=== PATIENT | female | born 1935 | race Asian ===

== ENCOUNTER 2022-11-29 02:58 | Inpatient (IN) | payer MEDICARE ==
[~2022-11-29] VITALS: Ht 154.9 cm; Wt 36.3 kg
[2022-11-29] VITALS (17 sets, daily range): BP systolic 88–161; BP diastolic 50–98; TEMP 96.6–98.5; O2SAT 94–98
[2022-11-29] MEDS ORDERED: IV NS 0.9% 1,000 ML BAG IV ONE (03:30)
[2022-11-29 03:32] LABS: SITE, VBG Other; VBG BASE EXCESS -18.4 mmol/L (-3-3); VBG COHb 0.3 %; VBG MetHb 0.4 %; VBG O2Hb 77.4 %; VBG OXYGEN SATURATION 77.9 %; VBG PCO2 19.1 mmHg (40-52); VBG PH 7.198 (7.31-7.41); VBG PO2 43.2 mmHg (30-50); VBG TOTAL HEMOGLOBIN 15.6 G/dL (12.0-16.0); VENT MODE, VBG ROOM AIR
[2022-11-29 03:57] LABS: LACTIC ACID 1.5 mmol/L (0.4-2.0)
[2022-11-29 03:58] LABS: ALANINE AMINOTRANSFERASE 11 U/L (12-78); ALBUMIN 2.5 g/dL (3.4-5.0); ALKALINE PHOSPHATASE 138 U/L (46-116); ASPARTATE AMINOTRANSFERASE 7 U/L (15-37); BILIRUBIN,DIRECT 0.2 mg/dL (0.0-0.2); BILIRUBIN,TOTAL 0.8 mg/dL (0.2-1.0); CALCIUM, SERUM 10.2 mg/dL (8.5-10.1); CHLORIDE 95 mmol/L (98-107); CREATININE 1.3 mg/dL (0.6-1.3); POTASSIUM 3.1 mmol/L (3.5-5.1); SODIUM SERUM 137 mmol/L (136-145); TOTAL PROTEIN, SERUM 8.3 g/dL (6.4-8.2); UREA NITROGEN, BLOOD 35 mg/dL (7-18)
[2022-11-29 03:59] LABS: BASOPHILS % (AUTO) 0.1 % (0.0-2.0); HEMATOCRIT 45 % (33-45); HEMOGLOBIN 14.3 g/dL (11.5-14.8); LYMPHOCYTES # (AUTO) 0.5 K/uL (0.8-4.8); LYMPHOCYTES % (AUTO) 2.6 % (20.0-44.0); MEAN CORPUSCULAR HEMOGLOBIN 30 PG (26.0-33.0); MEAN CORPUSCULAR HGB CONC 32 g/dl (31.0-36.0); MEAN CORPUSCULAR VOLUME 93 fL (82-100); MONOCYTES # (AUTO) 1.3 K/uL (0.1-1.30); MONOCYTES % (AUTO) 6.7 % (2.0-12.0); NEUTROPHILS # (AUTO) 18.1 K/uL (1.8-8.9); NEUTROPHILS % (AUTO) 90.6 % (43.0-81.0); PLATELET COUNT (AUTO) 486 K/uL (150-450); RED BLOOD CELL COUNT(AUTO) 4.82 MIL/uL (4.0-5.2); RED CELL DISTRIBUTION WIDTH 14.2 % (11.5-15.0)
[2022-11-29 04:00] LABS: CARBON DIOXIDE 8 mmol/L (21-32); GLUCOSE 629 mg/dL (74-106)
[2022-11-29] MEDS ORDERED: POTASSIUM CL. PREMIX PERIPHER. 50 ML ONE ×3 (04:16→06:56)
[2022-11-29] MEDS ORDERED: VANCOMYCIN 1 GM /D5W 250 ML PB IV ONE (04:16)
[2022-11-29] MEDS ORDERED: PIPERACI/TAZO 3.375GM/D5W 50ML PB IV ONE (04:16)
[2022-11-29 04:25] LABS: MAGNESIUM 2.4 mg/dL (1.8-2.4); PHOSPHORUS 3.6 mg/dL (2.5-4.9)
[2022-11-29] MEDS ORDERED: IV LR 1000 ML 1,000 ML IV ONE (04:30)
[2022-11-29] MEDS ORDERED: PIPERACILLIN /TAZOBACTAM 3.375 G in IV D5W 50 ML IV ONE (04:30)
[2022-11-29] MEDS ORDERED: VANCOMYCIN 1 GM in IV D5W 250 ML IV ONE (04:30)
[2022-11-29] MEDS: POTASSIUM CL. PREMIX PERIPHER. 50 ML IV SCH ×10 (05:00→23:57)
[2022-11-29 05:32] LABS: APPEARANCE,URINE CLOUDY (CLEAR); BILIRUBIN,URINE NEGATIVE (NEGATIVE); BLOOD, URINE 1+ Ery/uL (NEGATIVE); COLOR,URINE YELLOW (YELLOW); KETONES,URINE 3+ mg/dL (NEGATIVE); LEUKOCYTE ESTERASE ,URINE 1+ (NEGATIVE); NITRITE, URINE NEGATIVE (NEGATIVE); PH,URINE 5.5 (5.0-8.0); PROTEIN,URINE 1+ mg/dl (NEGATIVE); UGLUCOSE 2+ mg/dL (NEGATIVE); UROBILINOGEN,URINE 0.2 EU/dL (0.2)
[2022-11-29 06:26] LABS: ADD URINE CULTURE YES; BACTERIA,URINE 3+ /HPF (None Seen); MUCUS,URINE Moderate /LPF (None Seen); WBC,URINE TOO NUMEROUS TO COUN /HPF (0-3)
[2022-11-29] MEDS ORDERED: Z GUARD REMEDY 4 OZ OINT TP PRN (06:30)
[2022-11-29] MEDS ORDERED: MORPHINE SULFATE INJ 2 MG/ML DISP.SYRIN IV PRN (06:30)
[2022-11-29] MEDS ORDERED: IV NS 0.9% 1,000 ML IV PRN (06:30)
[2022-11-29] MEDS ORDERED: CEFTRIAXONE 1 G in IV D5W 50 ML IV SCH (06:30)
[2022-11-29] MEDS ORDERED: HYDROCODONE/APAP 5/325MG TABLET PO PRN (06:30)
[2022-11-29] MEDS ORDERED: MAGNESIUM HYDROXIDE 30 ML UDC PO PRN (06:30)
[2022-11-29] MEDS ORDERED: MAG HYDROX/AL HYDROX/SIMETH 30 ML UDC PO PRN (06:30)
[2022-11-29] MEDS ORDERED: ACETAMINOPHEN 325 MG TABLET PO PRN (06:30)
[2022-11-29] MEDS ORDERED: INSULIN REGULAR, HUMAN 100 UNIT in IV NS 0.9% 99 ML IV PRN ×2 (06:30)
[2022-11-29] MEDS ORDERED: ONDANSETRON HCL/PF 4 MG/2 ML VIAL IVP PRN (06:30)
[2022-11-29 07:08] LABS: CALCIUM, SERUM 8.8 mg/dL (8.5-10.1); CREATININE 1.1 mg/dL (0.6-1.3); POTASSIUM 3.9 mmol/L (3.5-5.1)
[2022-11-29] MEDS ORDERED: CLON0.1T PO (07:42)
[2022-11-29] MEDS ORDERED: METF-440 PO (07:42)
[2022-11-29] MEDS ORDERED: AMLO-213 PO (07:42)
[2022-11-29 08:20] LABS: CALCIUM, SERUM 8.3 mg/dL (8.5-10.1); CREATININE 1.1 mg/dL (0.6-1.3)
[2022-11-29] MEDS: PANTOPRAZOLE 40 MG TABLET.DR PO SCH (09:04)
[2022-11-29] MEDS: ENOXAPARIN SODIUM 30 MG/0.3 ML DISP.SYRIN SQ SCH (09:05)
[2022-11-29 12:09] LABS: CALCIUM, SERUM 8.8 mg/dL (8.5-10.1); POTASSIUM 3.6 mmol/L (3.5-5.1)
[2022-11-29] MEDS ORDERED: IV D5/ 0.9% NACL 1,000 ML IV PRN (13:30)
[2022-11-29] MEDS: ZOSYN IVPB 2.25 G in IV D5W 50ml IV SCH ×2 (14:27→20:29)
[2022-11-29 17:14] LABS: CALCIUM, SERUM 8.7 mg/dL (8.5-10.1); CREATININE 0.7 mg/dL (0.6-1.3)
[2022-11-29 17:36] LABS: POTASSIUM 2.6 mmol/L (3.5-5.1)
[2022-11-29] MEDS ORDERED: Potassium Chloride 40 MEQ in IV D5/ 0.9% NACL 1,000 ML IV SCH (18:00)
[2022-11-29] MEDS: Potassium Chloride 40 MEQ in IV D5/ 0.9% NACL 1,000 ML IV SCH (19:51)
[2022-11-29 20:25] LABS: CALCIUM, SERUM 8.5 mg/dL (8.5-10.1); CREATININE 0.7 mg/dL (0.6-1.3)
[2022-11-29 20:27] LABS: POTASSIUM 2.8 mmol/L (3.5-5.1)
[2022-11-29] MEDS ORDERED: AZITHROMYCIN 500 MG VIAL ONE (20:59)
[2022-11-29] MEDS: AZITHROMYCIN 500 MG in IV D5W 250 ML IV SCH (21:26)
[2022-11-30] VITALS (18 sets, daily range): BP systolic 110–160; BP diastolic 54–93; TEMP 97.6–98.9; O2SAT 95–99
[2022-11-30 00:54] LABS: CALCIUM, SERUM 8.3 mg/dL (8.5-10.1); CREATININE 0.8 mg/dL (0.6-1.3); POTASSIUM 3.7 mmol/L (3.5-5.1)
[2022-11-30] MEDS ORDERED: BLOOD SUGAR DIAGNOSTIC 1 EACH STRIP IN SCH (01:00)
[2022-11-30] MEDS: ZOSYN IVPB 2.25 G in IV D5W 50ml IV SCH ×4 (01:26→20:44)
[2022-11-30] MEDS ORDERED: DEXTROSE 50%-WATER 50 ML DISP.SYRIN IV PRN (02:00)
[2022-11-30] MEDS: VANCOMYCIN HCL 0.75 GM in IV D5W 250 ML IV SCH (04:36)
[2022-11-30 04:51] LABS: BASOPHILS % (AUTO) 0.2 % (0.0-2.0); HEMATOCRIT 38 % (33-45); HEMOGLOBIN 12.3 g/dL (11.5-14.8); LYMPHOCYTES % (AUTO) 5.1 % (20.0-44.0); MEAN CORPUSCULAR HEMOGLOBIN 29 PG (26.0-33.0); MEAN CORPUSCULAR HGB CONC 32 g/dl (31.0-36.0); MEAN CORPUSCULAR VOLUME 90 fL (82-100); MONOCYTES # (AUTO) 1.4 K/uL (0.1-1.30); NEUTROPHILS # (AUTO) 17.3 K/uL (1.8-8.9); NEUTROPHILS % (AUTO) 87.7 % (43.0-81.0); PLATELET COUNT (AUTO) 301 K/uL (150-450); RED BLOOD CELL COUNT(AUTO) 4.23 MIL/uL (4.0-5.2); RED CELL DISTRIBUTION WIDTH 13.7 % (11.5-15.0); WHITE BLOOD COUNT (AUTO) 19.8 K/uL (4.3-11.0)
[2022-11-30 05:12] LABS: ALBUMIN 1.8 g/dL (3.4-5.0); BILIRUBIN,TOTAL 0.6 mg/dL (0.2-1.0); CALCIUM, SERUM 8.8 mg/dL (8.5-10.1); CREATININE 0.7 mg/dL (0.6-1.3); MAGNESIUM 1.7 mg/dL (1.8-2.4); PHOSPHORUS 1.3 mg/dL (2.5-4.9); POTASSIUM 3.6 mmol/L (3.5-5.1); TOTAL PROTEIN, SERUM 6.6 g/dL (6.4-8.2)
[2022-11-30 05:18] LABS: THYROID STIMULATING HORMONE 0.392 uIU/mL (0.358-3.74)
[2022-11-30 06:04] LABS: BAND % (MANUAL) 16 % (0.0-5.0); LYMPHOCYTES % (MANUAL) 7 % (16-48); MONOCYTES % (MANUAL) 3 % (0-11.0); NEUTROPHILS % (MANUAL) 74 (42-76); PLATELET ESTIMATE ADEQUATE
[2022-11-30] MEDS: ENOXAPARIN SODIUM 30 MG/0.3 ML DISP.SYRIN SQ SCH (06:06)
[2022-11-30] MEDS: BLOOD SUGAR DIAGNOSTIC 1 EACH STRIP IN SCH ×4 (07:04→22:50)
[2022-11-30] MEDS: INSULIN REGULAR, HUMAN 100 UNIT/ML 3 ML VIAL SQ PRN ×2 (07:07→17:13)
[2022-11-30] MEDS: PANTOPRAZOLE 40 MG TABLET.DR PO SCH (07:08)
[2022-11-30] MEDS: Potassium Chloride 40 MEQ in IV D5/ 0.9% NACL 1,000 ML IV SCH ×2 (09:16→23:34)
[2022-11-30] MEDS: Magnesium 1GM/D5W 100ML PREMIX 100 ML IV SCH ×2 (09:43→10:48)
[2022-11-30] MEDS ORDERED: K PHOS NEUTRAL 250 MG TABLET PO ONE (16:00)
[2022-11-30] MEDS: AZITHROMYCIN 500 MG in IV D5W 250 ML IV SCH (20:44)
[2022-12-01] MEDS: INSULIN REGULAR, HUMAN 100 UNIT/ML 3 ML VIAL SQ PRN ×5 (00:30→21:51)
[2022-12-01] MEDS: ZOSYN IVPB 2.25 G in IV D5W 50ml IV SCH ×4 (02:11→20:16)
[2022-12-01 04:00] VITALS: BP 150/61; TEMP 97.7; O2SAT 97
[2022-12-01] MEDS: VANCOMYCIN HCL 0.75 GM in IV D5W 250 ML IV SCH (04:06)
[2022-12-01 06:27] LABS: EOSINOPHILS # (AUTO) 0.1 K/uL (0.0-0.7); EOSINOPHILS % (AUTO) 0.7 % (0.0-6.0); HEMATOCRIT 40 % (33-45); HEMOGLOBIN 13.1 g/dL (11.5-14.8); LYMPHOCYTES # (AUTO) 1.6 K/uL (0.8-4.8); LYMPHOCYTES % (AUTO) 11.3 % (20.0-44.0); MEAN CORPUSCULAR HEMOGLOBIN 30 PG (26.0-33.0); MEAN CORPUSCULAR HGB CONC 33 g/dl (31.0-36.0); MEAN CORPUSCULAR VOLUME 90 fL (82-100); MONOCYTES # (AUTO) 1.2 K/uL (0.1-1.30); MONOCYTES % (AUTO) 8.4 % (2.0-12.0); NEUTROPHILS # (AUTO) 11.4 K/uL (1.8-8.9); NEUTROPHILS % (AUTO) 79.6 % (43.0-81.0); PLATELET COUNT (AUTO) 268 K/uL (150-450); RED BLOOD CELL COUNT(AUTO) 4.42 MIL/uL (4.0-5.2); RED CELL DISTRIBUTION WIDTH 13.9 % (11.5-15.0); WHITE BLOOD COUNT (AUTO) 14.3 K/uL (4.3-11.0)
[2022-12-01] MEDS: BLOOD SUGAR DIAGNOSTIC 1 EACH STRIP IN SCH ×4 (06:53→21:55)
[2022-12-01] MEDS: ENOXAPARIN SODIUM 30 MG/0.3 ML DISP.SYRIN SQ SCH (06:53)
[2022-12-01 07:00] LABS: ALBUMIN 1.6 g/dL (3.4-5.0); BILIRUBIN,TOTAL 0.5 mg/dL (0.2-1.0); CALCIUM, SERUM 8.1 mg/dL (8.5-10.1); CREATININE 0.6 mg/dL (0.6-1.3); MAGNESIUM 2.1 mg/dL (1.8-2.4); PHOSPHORUS 1.8 mg/dL (2.5-4.9); POTASSIUM 3.4 mmol/L (3.5-5.1); TOTAL PROTEIN, SERUM 6.2 g/dL (6.4-8.2)
[2022-12-01] MEDS: PANTOPRAZOLE 40 MG TABLET.DR PO SCH (07:16)
[2022-12-01 10:07] VITALS: BP 145/64; TEMP 98.4; O2SAT 98
[2022-12-01] MEDS: Potassium Chloride 40 MEQ in IV D5/ 0.9% NACL 1,000 ML IV SCH (11:34)
[2022-12-01] MEDS ORDERED: POTASSIUM CHLORIDE 20 MEQ POWDER PACKET PO ONE (12:00)
[2022-12-01] MEDS ORDERED: CLONIDINE HCL 0.1 MG TABLET PO PRN (13:00)
[2022-12-01] MEDS: METFORMIN 500 MG TABLET PO SCH (17:11)
[2022-12-01 20:00] VITALS: BP 153/63; TEMP 98.8; O2SAT 99
[2022-12-01] MEDS: AZITHROMYCIN 500 MG in IV D5W 250 ML IV SCH (20:51)
[2022-12-01] MEDS: INSULIN GLARGINE, 100 UNIT/ML CARTRIDGE SQ SCH (22:10)
[2022-12-02] MEDS: Potassium Chloride 40 MEQ in IV D5/ 0.9% NACL 1,000 ML IV SCH ×2 (01:24→14:43)
[2022-12-02] MEDS: ZOSYN IVPB 2.25 G in IV D5W 50ml IV SCH ×4 (02:08→19:58)
[2022-12-02 04:00] VITALS: BP 149/75; TEMP 98.6; O2SAT 99
[2022-12-02] MEDS: VANCOMYCIN HCL 0.75 GM in IV D5W 250 ML IV SCH (04:22)
[2022-12-02] MEDS: ENOXAPARIN SODIUM 30 MG/0.3 ML DISP.SYRIN SQ SCH (06:35)
[2022-12-02] MEDS: BLOOD SUGAR DIAGNOSTIC 1 EACH STRIP IN SCH ×4 (06:58→21:10)
[2022-12-02] MEDS: INSULIN REGULAR, HUMAN 100 UNIT/ML 3 ML VIAL SQ PRN ×3 (07:01→21:15)
[2022-12-02 07:09] LABS: CALCIUM, SERUM 7.6 mg/dL (8.5-10.1); CARBON DIOXIDE 25 mmol/L (21-32); CHLORIDE 101 mmol/L (98-107); CREATININE 0.5 mg/dL (0.6-1.3); GLUCOSE 245 mg/dL (74-106); MAGNESIUM 1.7 mg/dL (1.8-2.4); PHOSPHORUS 1.7 mg/dL (2.5-4.9); POTASSIUM 3.4 mmol/L (3.5-5.1); SODIUM SERUM 135 mmol/L (136-145); UREA NITROGEN, BLOOD 2 mg/dL (7-18)
[2022-12-02 07:45] LABS: BASOPHILS % (AUTO) 0.1 % (0.0-2.0); EOSINOPHILS # (AUTO) 0.1 K/uL (0.0-0.7); EOSINOPHILS % (AUTO) 0.6 % (0.0-6.0); HEMATOCRIT 37 % (33-45); LYMPHOCYTES # (AUTO) 1.5 K/uL (0.8-4.8); MEAN CORPUSCULAR HEMOGLOBIN 29 PG (26.0-33.0); MEAN CORPUSCULAR HGB CONC 33 g/dl (31.0-36.0); MEAN CORPUSCULAR VOLUME 90 fL (82-100); MONOCYTES # (AUTO) 1.1 K/uL (0.1-1.30); MONOCYTES % (AUTO) 9.6 % (2.0-12.0); NEUTROPHILS # (AUTO) 8.6 K/uL (1.8-8.9); NEUTROPHILS % (AUTO) 76.7 % (43.0-81.0); PLATELET COUNT (AUTO) 279 K/uL (150-450); RED BLOOD CELL COUNT(AUTO) 4.11 MIL/uL (4.0-5.2); RED CELL DISTRIBUTION WIDTH 13.6 % (11.5-15.0); WHITE BLOOD COUNT (AUTO) 11.2 K/uL (4.3-11.0)
[2022-12-02 08:00] VITALS: BP 137/63; TEMP 99.1; O2SAT 97
[2022-12-02] MEDS: PANTOPRAZOLE 40 MG TABLET.DR PO SCH (08:21)
[2022-12-02] MEDS: AMLODIPINE BESYLATE 10 MG TABLET PO SCH (08:21)
[2022-12-02] MEDS: METFORMIN 500 MG TABLET PO SCH ×2 (08:21→17:36)
[2022-12-02] MEDS ORDERED: MAGNESIUM OXIDE 400 MG TABLET PO ONE (10:00)
[2022-12-02] MEDS: GLUCERNA SHAKE 237 ML CAN PO SCH ×2 (12:03→16:43)
[2022-12-02 16:00] VITALS: BP 152/56; TEMP 98.9; O2SAT 98
[2022-12-02] MEDS ORDERED: K PHOS NEUTRAL 250 MG TABLET PO ONE (16:00)
[2022-12-02] MEDS ORDERED: VANCOMYCIN 500 MG in IV D5W 100ml IV SCH (16:00)
[2022-12-02 20:00] VITALS: BP 153/58; TEMP 97.7; O2SAT 100
[2022-12-02] MEDS: AZITHROMYCIN 500 MG in IV D5W 250 ML IV SCH (20:36)
[2022-12-02] MEDS: INSULIN GLARGINE, 100 UNIT/ML CARTRIDGE SQ SCH (21:14)
[2022-12-03] MEDS: ZOSYN IVPB 2.25 G in IV D5W 50ml IV SCH ×3 (01:23→14:03)
[2022-12-03 01:30] VITALS: BP 147/58; TEMP 98.4; O2SAT 99
[2022-12-03] MEDS: Potassium Chloride 40 MEQ in IV D5/ 0.9% NACL 1,000 ML IV SCH (03:49)
[2022-12-03] MEDS: ENOXAPARIN SODIUM 30 MG/0.3 ML DISP.SYRIN SQ SCH (05:54)
[2022-12-03 06:28] LABS: BASOPHILS % (AUTO) 0.3 % (0.0-2.0); EOSINOPHILS # (AUTO) 0.1 K/uL (0.0-0.7); EOSINOPHILS % (AUTO) 1.5 % (0.0-6.0); HEMATOCRIT 31 % (33-45); HEMOGLOBIN 10.1 g/dL (11.5-14.8); LYMPHOCYTES # (AUTO) 1.7 K/uL (0.8-4.8); LYMPHOCYTES % (AUTO) 20.6 % (20.0-44.0); MEAN CORPUSCULAR HEMOGLOBIN 30 PG (26.0-33.0); MEAN CORPUSCULAR HGB CONC 33 g/dl (31.0-36.0); MEAN CORPUSCULAR VOLUME 90 fL (82-100); MONOCYTES # (AUTO) 1.2 K/uL (0.1-1.30); MONOCYTES % (AUTO) 14.6 % (2.0-12.0); NEUTROPHILS # (AUTO) 5.2 K/uL (1.8-8.9); PLATELET COUNT (AUTO) 277 K/uL (150-450); RED BLOOD CELL COUNT(AUTO) 3.39 MIL/uL (4.0-5.2); RED CELL DISTRIBUTION WIDTH 13.6 % (11.5-15.0); WHITE BLOOD COUNT (AUTO) 8.2 K/uL (4.3-11.0)
[2022-12-03 06:52] LABS: MAGNESIUM 1.7 mg/dL (1.8-2.4); PHOSPHORUS 2.5 mg/dL (2.5-4.9)
[2022-12-03] MEDS: PANTOPRAZOLE 40 MG TABLET.DR PO SCH (07:05)
[2022-12-03] MEDS: BLOOD SUGAR DIAGNOSTIC 1 EACH STRIP IN SCH ×4 (07:23→21:18)
[2022-12-03 08:00] VITALS: BP 139/64; TEMP 98.1; O2SAT 100
[2022-12-03] MEDS: GLUCERNA SHAKE 237 ML CAN PO SCH ×3 (08:28→17:20)
[2022-12-03] MEDS: METFORMIN 500 MG TABLET PO SCH ×2 (08:38→16:26)
[2022-12-03] MEDS: AMLODIPINE BESYLATE 10 MG TABLET PO SCH (08:38)
[2022-12-03] MEDS ORDERED: MAGNESIUM OXIDE 400 MG TABLET PO ONE (10:00)
[2022-12-03] MEDS ORDERED: POTASSIUM CHLORIDE 20 MEQ TAB.PRT.SR PO SCH (10:00)
[2022-12-03] MEDS: INSULIN REGULAR, HUMAN 100 UNIT/ML 3 ML VIAL SQ PRN ×2 (11:30→17:18)
[2022-12-03 16:00] VITALS: BP 129/58; TEMP 98.5; O2SAT 99
[2022-12-03 20:00] VITALS: BP 134/54; TEMP 99; O2SAT 100
[2022-12-03] MEDS: CEFTRIAXONE 1 G in IV D5W 50 ML IV SCH (21:00)
[2022-12-03] MEDS: INSULIN GLARGINE, 100 UNIT/ML CARTRIDGE SQ SCH (21:19)
[2022-12-04] MEDS: ENOXAPARIN SODIUM 30 MG/0.3 ML DISP.SYRIN SQ SCH (05:34)
[2022-12-04 06:50] LABS: BASOPHILS % (AUTO) 0.1 % (0.0-2.0); EOSINOPHILS # (AUTO) 0.3 K/uL (0.0-0.7); EOSINOPHILS % (AUTO) 3.7 % (0.0-6.0); HEMATOCRIT 35 % (33-45); HEMOGLOBIN 11.4 g/dL (11.5-14.8); LYMPHOCYTES # (AUTO) 2.2 K/uL (0.8-4.8); LYMPHOCYTES % (AUTO) 30.6 % (20.0-44.0); MEAN CORPUSCULAR HEMOGLOBIN 30 PG (26.0-33.0); MEAN CORPUSCULAR HGB CONC 33 g/dl (31.0-36.0); MEAN CORPUSCULAR VOLUME 90 fL (82-100); MONOCYTES # (AUTO) 1.1 K/uL (0.1-1.30); NEUTROPHILS # (AUTO) 3.7 K/uL (1.8-8.9); NEUTROPHILS % (AUTO) 50.6 % (43.0-81.0); PLATELET COUNT (AUTO) 407 K/uL (150-450); RED BLOOD CELL COUNT(AUTO) 3.84 MIL/uL (4.0-5.2); RED CELL DISTRIBUTION WIDTH 13.6 % (11.5-15.0); WHITE BLOOD COUNT (AUTO) 7.3 K/uL (4.3-11.0)
[2022-12-04 07:00] VITALS: BP 149/65; TEMP 97.9; O2SAT 96
[2022-12-04] MEDS: BLOOD SUGAR DIAGNOSTIC 1 EACH STRIP IN SCH ×2 (07:02→12:03)
[2022-12-04 07:14] LABS: CALCIUM, SERUM 7.9 mg/dL (8.5-10.1); CARBON DIOXIDE 29 mmol/L (21-32); CHLORIDE 104 mmol/L (98-107); CREATININE 0.5 mg/dL (0.6-1.3); GLUCOSE 93 mg/dL (74-106); MAGNESIUM 1.9 mg/dL (1.8-2.4); PHOSPHORUS 3.4 mg/dL (2.5-4.9); POTASSIUM 3.5 mmol/L (3.5-5.1); SODIUM SERUM 139 mmol/L (136-145); UREA NITROGEN, BLOOD 5 mg/dL (7-18)
[2022-12-04] MEDS: PANTOPRAZOLE 40 MG TABLET.DR PO SCH (09:12)
[2022-12-04] MEDS: GLUCERNA SHAKE 237 ML CAN PO SCH ×2 (09:12→12:04)
[2022-12-04] MEDS: AMLODIPINE BESYLATE 10 MG TABLET PO SCH (09:12)
[2022-12-04] MEDS: METFORMIN 500 MG TABLET PO SCH (09:12)
[2022-12-04] MEDS ORDERED: NUT.237L45 PO (10:09)
[2022-12-04] MEDS ORDERED: CEFT1VIA14 IJ (10:09)
[2022-12-04] MEDS ORDERED: INSU100V28 SQ (10:16)
[2022-12-04] MEDS ORDERED: INSU100V7 SQ (10:16)
[2022-12-04] MEDS: CEFTRIAXONE 1 G in IV D5W 50 ML IV SCH (15:42)
[2022-12-04 16:00] VITALS: BP 114/55; TEMP 97.8; O2SAT 97
== END 2022-12-04 17:26 | disposition home health service (06) | DRG 871 ==
LOC: ER 03:01 → ICU 07:50 → MEDSG1 11-30 16:03 → MED 12-03 01:20
PROVIDERS: ATTEND Nurse Practitioner Acute Care
DX: A40.9 Streptococcal sepsis, unspecified (principal); E11.10 Type 2 diabetes mellitus with ketoacidosis without coma; J69.0 Pneumonitis due to inhalation of food and vomit; N39.0 Urinary tract infection, site not specified; N17.9 Acute kidney failure, unspecified; R64 Cachexia; G93.40 Encephalopathy, unspecified; E86.1 Hypovolemia; F02.80 Dementia in other diseases classified elsewhere, unspecified severity, without behavioral disturbance, psychotic disturbance, mood disturbance, and anxiety; G30.9 Alzheimer's disease, unspecified; Z20.822 Contact with and (suspected) exposure to COVID-19; I10 Essential (primary) hypertension; E83.52 Hypercalcemia; E78.5 Hyperlipidemia, unspecified; Z79.84 Long term (current) use of oral hypoglycemic drugs; Z79.899 Other long term (current) drug therapy; B95.61 Methicillin susceptible Staphylococcus aureus infection as the cause of diseases classified elsewhere; Z74.09 Other reduced mobility
CPT/HCPCS: 36415; 71045-TC; 80048-TC; 80053-TC; 80076-TC; 80202-TC; 81001; 82803-TC; 82962-TC; 83605-TC; 83735-TC; 84100-TC; 84443-TC; 84484-TC; 85025-TC; 87040-TC; 87081-TC; 87086-TC; 97110-TC; 97112-TC; 97530-TC; 97535-TC; A4223; C9803; G0378; J0456; J0696; J1650; J1815; J2543; J3370; J3475; J3480; J7030; J7040; J7042; J7050; J7060; J7120

== ENCOUNTER 2023-02-06 17:15 | Inpatient (IN) | payer MEDICARE ==
[~2023-02-06] VITALS: Ht 154.9 cm; Wt 34.5 kg
[~2023-02-06 17:15] MED LIST: AMLO-213 PO; CEFT1VIA14 IJ; CLON0.1T PO; INSU100V28 SQ; INSU100V7 SQ; METF-440 PO; NUT.237L45 PO
[2023-02-06] MEDS ORDERED: IV NS 0.9% 500 ML BAG IV ONE ×2 (18:30→20:30)
[2023-02-06 18:39] LABS: BASOPHILS # (AUTO) 0.1 K/uL (0.0-0.2); BASOPHILS % (AUTO) 1.1 % (0.0-2.0); EOSINOPHILS # (AUTO) 0.1 K/uL (0.0-0.7); EOSINOPHILS % (AUTO) 1.1 % (0.0-6.0); HEMATOCRIT 38 % (33-45); HEMOGLOBIN 12.4 g/dL (11.5-14.8); LYMPHOCYTES # (AUTO) 2.1 K/uL (0.8-4.8); LYMPHOCYTES % (AUTO) 34.5 % (20.0-44.0); MEAN CORPUSCULAR HEMOGLOBIN 29 PG (26.0-33.0); MEAN CORPUSCULAR HGB CONC 33 g/dl (31.0-36.0); MEAN CORPUSCULAR VOLUME 89 fL (82-100); MONOCYTES # (AUTO) 0.6 K/uL (0.1-1.30); MONOCYTES % (AUTO) 9.5 % (2.0-12.0); NEUTROPHILS # (AUTO) 3.2 K/uL (1.8-8.9); NEUTROPHILS % (AUTO) 53.8 % (43.0-81.0); PLATELET COUNT (AUTO) 455 K/uL (150-450); RED BLOOD CELL COUNT(AUTO) 4.24 MIL/uL (4.0-5.2); RED CELL DISTRIBUTION WIDTH 14.3 % (11.5-15.0); WHITE BLOOD COUNT (AUTO) 5.9 K/uL (4.3-11.0)
[2023-02-06 18:52] LABS: INR 0.97 (0.91-1.10); PARTIAL THROMBOPLASTIN TIME 30.7 SEC (24.3-34.3); PROTHROMBIN TIME 10.3 SECS (9.2-11.1)
[2023-02-06 19:14] LABS: MAGNESIUM 1.8 mg/dL (1.8-2.4)
[2023-02-06 19:23] LABS: ALANINE AMINOTRANSFERASE 12 U/L (12-78); ALBUMIN 2.9 g/dL (3.4-5.0); ALKALINE PHOSPHATASE 68 U/L (46-116); ASPARTATE AMINOTRANSFERASE 15 U/L (15-37); BILIRUBIN,DIRECT 0.1 mg/dL (0.0-0.2); BILIRUBIN,TOTAL 0.7 mg/dL (0.2-1.0); CALCIUM, SERUM 9.1 mg/dL (8.5-10.1); CARBON DIOXIDE 28 mmol/L (21-32); CHLORIDE 101 mmol/L (98-107); CREATININE 0.6 mg/dL (0.6-1.3); GLUCOSE 140 mg/dL (74-106); POTASSIUM 3.5 mmol/L (3.5-5.1); SODIUM SERUM 139 mmol/L (136-145); TOTAL PROTEIN, SERUM 7.5 g/dL (6.4-8.2); UREA NITROGEN, BLOOD 9 mg/dL (7-18)
[2023-02-06 19:57] LABS: THYROID STIMULATING HORMONE 1.085 uIU/mL (0.358-3.74)
[2023-02-06] MEDS ORDERED: Z GUARD REMEDY 4 OZ OINT TP PRN (22:00)
[2023-02-06] MEDS ORDERED: DEXTROSE 50%-WATER 50 ML DISP.SYRIN IV PRN (22:00)
[2023-02-06] MEDS ORDERED: MAGNESIUM HYDROXIDE 30 ML UDC PO PRN (22:00)
[2023-02-06] MEDS ORDERED: ACETAMINOPHEN 325 MG TABLET PO PRN (22:00)
[2023-02-06] MEDS ORDERED: ONDANSETRON HCL/PF 4 MG/2 ML VIAL IVP PRN (22:00)
[2023-02-06] MEDS ORDERED: HYDROCODONE/APAP 5/325MG TABLET PO PRN (22:00)
[2023-02-06] MEDS ORDERED: MAG HYDROX/AL HYDROX/SIMETH 30 ML UDC PO PRN (22:00)
[2023-02-06] MEDS ORDERED: ZOLPIDEM TARTRATE 5 MG TABLET PO PRN (22:00)
[2023-02-06 23:10] VITALS: BP 154/63; TEMP 97.8; O2SAT 100
[2023-02-06] MEDS: BLOOD SUGAR DIAGNOSTIC 1 EACH STRIP IN SCH (23:21)
[2023-02-06] MEDS: ENOXAPARIN SODIUM 40 MG/0.4 ML DISP.SYRIN SQ SCH (23:26)
[2023-02-06] MEDS: INSULIN REGULAR, HUMAN 100 UNIT/ML 3 ML VIAL SQ PRN (23:30)
[2023-02-06] MEDS: IV D5/0.45 NACL 1,000 ML IV PRN (23:36)
[2023-02-07] MEDS: BLOOD SUGAR DIAGNOSTIC 1 EACH STRIP IN SCH ×3 (06:31→16:45)
[2023-02-07] MEDS: INSULIN REGULAR, HUMAN 100 UNIT/ML 3 ML VIAL SQ PRN ×3 (06:39→16:46)
[2023-02-07] MEDS: PANTOPRAZOLE 40 MG TABLET.DR PO SCH (07:35)
[2023-02-07] MEDS: IV D5/0.45 NACL 1,000 ML IV PRN (10:24)
[2023-02-07 10:40] LABS: BASOPHILS % (AUTO) 0.9 % (0.0-2.0); EOSINOPHILS % (AUTO) 1.2 % (0.0-6.0); HEMATOCRIT 37 % (33-45); HEMOGLOBIN 12.1 g/dL (11.5-14.8); LYMPHOCYTES # (AUTO) 1.3 K/uL (0.8-4.8); LYMPHOCYTES % (AUTO) 31.9 % (20.0-44.0); MEAN CORPUSCULAR HEMOGLOBIN 29 PG (26.0-33.0); MEAN CORPUSCULAR HGB CONC 33 g/dl (31.0-36.0); MEAN CORPUSCULAR VOLUME 89 fL (82-100); MONOCYTES # (AUTO) 0.4 K/uL (0.1-1.30); MONOCYTES % (AUTO) 9.5 % (2.0-12.0); NEUTROPHILS # (AUTO) 2.3 K/uL (1.8-8.9); NEUTROPHILS % (AUTO) 56.5 % (43.0-81.0); PLATELET COUNT (AUTO) 379 K/uL (150-450); RED BLOOD CELL COUNT(AUTO) 4.13 MIL/uL (4.0-5.2); RED CELL DISTRIBUTION WIDTH 14.3 % (11.5-15.0); WHITE BLOOD COUNT (AUTO) 4.1 K/uL (4.3-11.0)
[2023-02-07 10:44] LABS: CALCIUM, SERUM 8.5 mg/dL (8.5-10.1); CREATININE 0.6 mg/dL (0.6-1.3); MAGNESIUM 1.7 mg/dL (1.8-2.4); PHOSPHORUS 2.7 mg/dL (2.5-4.9); POTASSIUM 2.9 mmol/L (3.5-5.1)
[2023-02-07 11:41] LABS: THYROID STIMULATING HORMONE 1.349 uIU/mL (0.358-3.74)
[2023-02-07 15:13] LABS: C-REACTIVE PROTEIN 2.64 mg/dL (0.0-0.30)
[2023-02-07 16:30] LABS: RHEUMATOID FACTOR SCREEN NEGATIVE (NEGATIVE)
[2023-02-07] MEDS: METFORMIN 500 MG TABLET PO SCH (16:52)
[2023-02-07] MEDS ORDERED: POTASSIUM CHLORIDE 20 MEQ TAB.PRT.SR PO ONE (18:00)
[2023-02-07 20:39] VITALS: BP 137/73; TEMP 97.5; O2SAT 100
[2023-02-07] MEDS: ENOXAPARIN SODIUM 40 MG/0.4 ML DISP.SYRIN SQ SCH (21:58)
[2023-02-08] MEDS: POTASSIUM CL. PREMIX PERIPHER. 50 ML IV SCH ×4 (00:34→05:07)
[2023-02-08] MEDS: BLOOD SUGAR DIAGNOSTIC 1 EACH STRIP IN SCH ×5 (02:34→22:03)
[2023-02-08] MEDS ORDERED: POTASSIUM CL. PREMIX PERIPHER. 150 ML ONE (02:40)
[2023-02-08] MEDS: IV D5/0.45 NACL 1,000 ML IV PRN ×2 (05:05→16:05)
[2023-02-08 06:03] LABS: BASOPHILS # (AUTO) 0.1 K/uL (0.0-0.2); BASOPHILS % (AUTO) 1.3 % (0.0-2.0); EOSINOPHILS # (AUTO) 0.1 K/uL (0.0-0.7); EOSINOPHILS % (AUTO) 1.8 % (0.0-6.0); HEMATOCRIT 35 % (33-45); HEMOGLOBIN 11.7 g/dL (11.5-14.8); LYMPHOCYTES % (AUTO) 38.2 % (20.0-44.0); MEAN CORPUSCULAR HEMOGLOBIN 30 PG (26.0-33.0); MEAN CORPUSCULAR HGB CONC 33 g/dl (31.0-36.0); MEAN CORPUSCULAR VOLUME 90 fL (82-100); MONOCYTES # (AUTO) 0.4 K/uL (0.1-1.30); MONOCYTES % (AUTO) 8.3 % (2.0-12.0); NEUTROPHILS # (AUTO) 2.6 K/uL (1.8-8.9); NEUTROPHILS % (AUTO) 50.4 % (43.0-81.0); PLATELET COUNT (AUTO) 348 K/uL (150-450); RED BLOOD CELL COUNT(AUTO) 3.92 MIL/uL (4.0-5.2); RED CELL DISTRIBUTION WIDTH 14.3 % (11.5-15.0); WHITE BLOOD COUNT (AUTO) 5.2 K/uL (4.3-11.0)
[2023-02-08 06:07] LABS: CALCIUM, SERUM 8.6 mg/dL (8.5-10.1); CARBON DIOXIDE 24 mmol/L (21-32); CHLORIDE 107 mmol/L (98-107); CREATININE 0.4 mg/dL (0.6-1.3); GLUCOSE 177 mg/dL (74-106); POTASSIUM 4.7 mmol/L (3.5-5.1); SODIUM SERUM 138 mmol/L (136-145); UREA NITROGEN, BLOOD 2 mg/dL (7-18)
[2023-02-08] MEDS: INSULIN REGULAR, HUMAN 100 UNIT/ML 3 ML VIAL SQ PRN ×4 (06:48→22:07)
[2023-02-08 07:00] VITALS: BP 151/60; TEMP 97.7; O2SAT 100
[2023-02-08] MEDS: PANTOPRAZOLE 40 MG TABLET.DR PO SCH (08:18)
[2023-02-08] MEDS: METFORMIN 500 MG TABLET PO SCH ×2 (08:18→16:54)
[2023-02-08] MEDS: AMLODIPINE BESYLATE 10 MG TABLET PO SCH (08:19)
[2023-02-08 10:07] LABS: IMMUNOGLOBULIN A, SERUM 543 mg/dL (64-422); IMMUNOGLOBULIN G, SERUM 1270 mg/dL (586-1602)
[2023-02-08] MEDS: GLUCERNA SHAKE 237 ML CAN PO SCH ×2 (11:37→16:54)
[2023-02-08 16:00] VITALS: BP 135/58; TEMP 97.6; O2SAT 100
[2023-02-08 20:00] VITALS: BP 145/63; TEMP 98; O2SAT 100
[2023-02-08] MEDS: ENOXAPARIN SODIUM 40 MG/0.4 ML DISP.SYRIN SQ SCH ×2 (22:00→22:17)
[2023-02-09 01:06] LABS: FOLIC ACID 8.1 ng/mL (>3.0)
[2023-02-09] MEDS: IV D5/0.45 NACL 1,000 ML IV PRN ×2 (03:14→14:28)
[2023-02-09 08:00] VITALS: BP_SYST 134; BP_SYST 160; BP_DIAS 70; BP_DIAS 72; TEMP 98.1; TEMP 98.2; O2SAT 99
[2023-02-09] MEDS: PANTOPRAZOLE 40 MG TABLET.DR PO SCH (09:00)
[2023-02-09] MEDS: AMLODIPINE BESYLATE 10 MG TABLET PO SCH (09:00)
[2023-02-09] MEDS: METFORMIN 500 MG TABLET PO SCH ×2 (09:01→16:48)
[2023-02-09] MEDS: GLUCERNA SHAKE 237 ML CAN PO SCH ×3 (09:08→16:48)
[2023-02-09 09:10] LABS: *SPE A/G RATIO 0.8 (0.7-1.7); *SPE ALPHA-1-GLOBULIN 0.4 g/dL (0.0-0.4); *SPE ALPHA-2-GLOBULIN 0.9 g/dL (0.4-1.0); *SPE BETA GLOBULIN 1.3 g/dL (0.7-1.3); *SPE GLOBULIN, TOTAL 3.7 g/dL (2.2-3.9); *SPE M-SPIKE Not Observed g/dL (Not Observed); *SPE PROTEIN TOTAL 6.7 g/dL (6.0-8.5); *SPEGAMMA GLOBULIN 1.1 g/dL (0.4-1.8); HEPATITIS B SURFACE AB Reactive (.)
[2023-02-09] MEDS: INSULIN REGULAR, HUMAN 100 UNIT/ML 3 ML VIAL SQ PRN ×4 (09:13→22:15)
[2023-02-09] MEDS: BLOOD SUGAR DIAGNOSTIC 1 EACH STRIP IN SCH ×4 (09:13→22:16)
[2023-02-09 13:09] LABS: *ANA ANTI-CENTROMERE B AB <0.2 AI (0.0-0.9); *ANA ANTI-DNA(DS) AB, QN <1 IU/mL (0-9); *ANA ANTI-JO-1 <0.2 AI (0.0-0.9); *ANA ANTICHROMATIN ANTIBODY <0.2 AI (0.0-0.9); *ANA RNP ANTIBODIES 1.3 AI (0.0-0.9); *ANA SJOGREN'S ANTI-SS-A <0.2 AI (0.0-0.9); *ANA SJOGREN'S ANTI-SS-B <0.2 AI (0.0-0.9); *ANAANTI-SCLERODERMA-70 AB <0.2 AI (0.0-0.9); *ANASMITH AB <0.2 AI (0.0-0.9)
[2023-02-09 15:07] LABS: AFP, TUMOR MARKER <1.8 ng/mL (0.0-8.7); IMMUNOGLOBULIN M, SERUM 50 mg/dL (26-217)
[2023-02-09 20:00] VITALS: BP 148/70; TEMP 98.6; O2SAT 98
[2023-02-09] MEDS: ENOXAPARIN SODIUM 40 MG/0.4 ML DISP.SYRIN SQ SCH (22:31)
[2023-02-10] MEDS: IV D5/0.45 NACL 1,000 ML IV PRN ×3 (00:36→23:13)
[2023-02-10] MEDS: INSULIN REGULAR, HUMAN 100 UNIT/ML 3 ML VIAL SQ PRN ×3 (07:03→22:15)
[2023-02-10 08:00] VITALS: BP 167/58; TEMP 97.9; O2SAT 100
[2023-02-10] MEDS: BLOOD SUGAR DIAGNOSTIC 1 EACH STRIP IN SCH ×4 (09:21→22:12)
[2023-02-10] MEDS: AMLODIPINE BESYLATE 10 MG TABLET PO SCH (09:22)
[2023-02-10] MEDS: METFORMIN 500 MG TABLET PO SCH ×2 (09:22→16:23)
[2023-02-10] MEDS: PANTOPRAZOLE 40 MG TABLET.DR PO SCH ×2 (09:23→09:24)
[2023-02-10] MEDS: GLUCERNA SHAKE 237 ML CAN PO SCH ×3 (09:28→16:23)
[2023-02-10] MEDS ORDERED: IV NS 0.9% 250 ML IV ONE (14:13)
[2023-02-10] MEDS ORDERED: IOHEXOL-300 100 ML VIAL IV ONE (14:13)
[2023-02-10 16:27] VITALS: BP 137/61; TEMP 97.5; O2SAT 100
[2023-02-10 20:00] VITALS: BP 137/61; TEMP 97.5; O2SAT 100
[2023-02-10] MEDS: ENOXAPARIN SODIUM 40 MG/0.4 ML DISP.SYRIN SQ SCH (22:00)
[2023-02-11 05:53] LABS: BASOPHILS # (AUTO) 0.1 K/uL (0.0-0.2); BASOPHILS % (AUTO) 1.1 % (0.0-2.0); EOSINOPHILS # (AUTO) 0.2 K/uL (0.0-0.7); EOSINOPHILS % (AUTO) 4.5 % (0.0-6.0); HEMATOCRIT 35 % (33-45); HEMOGLOBIN 11.6 g/dL (11.5-14.8); LYMPHOCYTES # (AUTO) 2.2 K/uL (0.8-4.8); LYMPHOCYTES % (AUTO) 40.4 % (20.0-44.0); MEAN CORPUSCULAR HEMOGLOBIN 30 PG (26.0-33.0); MEAN CORPUSCULAR HGB CONC 34 g/dl (31.0-36.0); MEAN CORPUSCULAR VOLUME 89 fL (82-100); MONOCYTES # (AUTO) 0.4 K/uL (0.1-1.30); MONOCYTES % (AUTO) 7.2 % (2.0-12.0); NEUTROPHILS # (AUTO) 2.6 K/uL (1.8-8.9); NEUTROPHILS % (AUTO) 46.8 % (43.0-81.0); PLATELET COUNT (AUTO) 361 K/uL (150-450); RED BLOOD CELL COUNT(AUTO) 3.89 MIL/uL (4.0-5.2); WHITE BLOOD COUNT (AUTO) 5.4 K/uL (4.3-11.0)
[2023-02-11 06:00] LABS: ALANINE AMINOTRANSFERASE 12 U/L (12-78); ALBUMIN 2.5 g/dL (3.4-5.0); ALKALINE PHOSPHATASE 58 U/L (46-116); ASPARTATE AMINOTRANSFERASE 12 U/L (15-37); BILIRUBIN,TOTAL 0.3 mg/dL (0.2-1.0); CALCIUM, SERUM 8.8 mg/dL (8.5-10.1); CARBON DIOXIDE 27 mmol/L (21-32); CHLORIDE 106 mmol/L (98-107); CREATININE 0.5 mg/dL (0.6-1.3); GLUCOSE 125 mg/dL (74-106); SODIUM SERUM 141 mmol/L (136-145); TOTAL PROTEIN, SERUM 6.4 g/dL (6.4-8.2); UREA NITROGEN, BLOOD 3 mg/dL (7-18)
[2023-02-11 06:06] LABS: INR 0.97 (0.91-1.10); PARTIAL THROMBOPLASTIN TIME 28.8 SEC (24.3-34.3); PROTHROMBIN TIME 10.3 SECS (9.2-11.1)
[2023-02-11 06:19] LABS: POTASSIUM 2.8 mmol/L (3.5-5.1)
[2023-02-11] MEDS: BLOOD SUGAR DIAGNOSTIC 1 EACH STRIP IN SCH ×4 (07:40→23:33)
[2023-02-11] MEDS: GLUCERNA SHAKE 237 ML CAN PO SCH ×3 (08:00→16:59)
[2023-02-11] MEDS: METFORMIN 500 MG TABLET PO SCH ×2 (08:18→16:59)
[2023-02-11] MEDS: AMLODIPINE BESYLATE 10 MG TABLET PO SCH (08:18)
[2023-02-11 08:48] VITALS: BP 143/56; TEMP 97.9; O2SAT 98
[2023-02-11] MEDS: POTASSIUM CL. PREMIX PERIPHER. 50 ML IV SCH ×6 (10:32→17:38)
[2023-02-11] MEDS: IV D5/0.45 NACL 1,000 ML IV PRN (10:42)
[2023-02-11] MEDS: LEVOFLOXACIN 500 MG /D5W 100ML 100 ML IV SCH (11:39)
[2023-02-11 16:14] VITALS: BP 134/74; TEMP 97.5; O2SAT 100
[2023-02-11 20:00] VITALS: BP 145/67; TEMP 97.9; O2SAT 97
[2023-02-11] MEDS: ENOXAPARIN SODIUM 40 MG/0.4 ML DISP.SYRIN SQ SCH (23:34)
[2023-02-11] MEDS: INSULIN REGULAR, HUMAN 100 UNIT/ML 3 ML VIAL SQ PRN (23:45)
[2023-02-12] MEDS: IV D5/0.45 NACL 1,000 ML IV PRN (05:38)
[2023-02-12 08:00] VITALS: BP 167/60; TEMP 97.5; O2SAT 100
[2023-02-12] MEDS: PANTOPRAZOLE 40 MG TABLET.DR PO SCH (08:21)
[2023-02-12] MEDS: GLUCERNA SHAKE 237 ML CAN PO SCH ×3 (08:22→16:49)
[2023-02-12] MEDS: BLOOD SUGAR DIAGNOSTIC 1 EACH STRIP IN SCH ×3 (08:23→16:49)
[2023-02-12] MEDS: AMLODIPINE BESYLATE 10 MG TABLET PO SCH (09:12)
[2023-02-12] MEDS: METFORMIN 500 MG TABLET PO SCH ×2 (09:13→16:49)
[2023-02-12] MEDS: LEVOFLOXACIN 500 MG /D5W 100ML 100 ML IV SCH (09:14)
[2023-02-12] MEDS ORDERED: LEVO500T90 PO (12:35)
[2023-02-12 16:39] VITALS: BP 137/54; TEMP 97.7; O2SAT 98
== END 2023-02-12 18:56 | disposition home or self-care (01) | DRG 439 ==
LOC: ER 17:17 → MED 22:40
PROVIDERS: ADMIT Student in an Organized Health Care Education/Training Program; ATTEND Nurse Practitioner Acute Care
PROC: 05H933Z Insertion of Infusion Device into Right Brachial Vein, Percutaneous Approach (ICD-10-PCS; principal; 2023-02-08)
DX: K86.89 Other specified diseases of pancreas (principal); E44.0 Moderate protein-calorie malnutrition; G93.40 Encephalopathy, unspecified; R64 Cachexia; E11.9 Type 2 diabetes mellitus without complications; F03.90 Unspecified dementia, unspecified severity, without behavioral disturbance, psychotic disturbance, mood disturbance, and anxiety; I10 Essential (primary) hypertension; Z79.84 Long term (current) use of oral hypoglycemic drugs; Z79.4 Long term (current) use of insulin; Z79.899 Other long term (current) drug therapy; R62.7 Adult failure to thrive; E27.9 Disorder of adrenal gland, unspecified; D72.819 Decreased white blood cell count, unspecified; E87.6 Hypokalemia; E78.5 Hyperlipidemia, unspecified; K76.9 Liver disease, unspecified; J98.4 Other disorders of lung; Z20.822 Contact with and (suspected) exposure to COVID-19
CPT/HCPCS: 36410; 36415; 71045-TC; 71250-TC; 71260-TC; 80048-TC; 80053-TC; 80076-TC; 82105; 82378; 82607-TC; 82784; 82962-TC; 83735-TC; 84100-TC; 84155; 84165; 84443-TC; 84484-TC; 85025-TC; 85610-TC; 85730-TC; 86140-TC; 86225; 86235; 86301; 86316; 86334; 86431-TC; 86480; 86706; 86803; 87040-TC; 87340; 97110-TC; 97116-TC; 97530-TC; A4223; C9803; G0378; J1650; J1815; J1956; J3480; J3490; J7040; J7050; Q9967

== ENCOUNTER 2023-04-14 15:38 | Inpatient (IN) | payer MEDICARE ==
[~2023-04-14] VITALS: Ht 149.9 cm; Wt 28.6 kg
[~2023-04-14 15:38] MED LIST changes: -CEFT1VIA14 IJ; -INSU100V28 SQ; -INSU100V7 SQ; +LEVO500T90 PO; -NUT.237L45 PO
[2023-04-14] MEDS: IV NS 0.9% 500 ML BAG IV ONE (16:45)
[2023-04-14 16:55] LABS: BASOPHILS # (AUTO) 0.1 K/uL (0.0-0.2); BASOPHILS % (AUTO) 1.9 % (0.0-2.0); EOSINOPHILS # (AUTO) 0.1 K/uL (0.0-0.7); EOSINOPHILS % (AUTO) 1.4 % (0.0-6.0); HEMATOCRIT 38 % (33-45); HEMOGLOBIN 12.6 g/dL (11.5-14.8); LYMPHOCYTES # (AUTO) 1.3 K/uL (0.8-4.8); LYMPHOCYTES % (AUTO) 24.6 % (20.0-44.0); MEAN CORPUSCULAR HEMOGLOBIN 30 PG (26.0-33.0); MEAN CORPUSCULAR HGB CONC 33 g/dl (31.0-36.0); MEAN CORPUSCULAR VOLUME 91 fL (82-100); MONOCYTES # (AUTO) 0.3 K/uL (0.1-1.30); MONOCYTES % (AUTO) 5.9 % (2.0-12.0); NEUTROPHILS # (AUTO) 3.5 K/uL (1.8-8.9); NEUTROPHILS % (AUTO) 66.2 % (43.0-81.0); PLATELET COUNT (AUTO) 415 K/uL (150-450); RED BLOOD CELL COUNT(AUTO) 4.16 MIL/uL (4.0-5.2); RED CELL DISTRIBUTION WIDTH 16.6 % (11.5-15.0); WHITE BLOOD COUNT (AUTO) 5.2 K/uL (4.3-11.0)
[2023-04-14 17:13] LABS: ALANINE AMINOTRANSFERASE 33 U/L (12-78); ALBUMIN 3.2 g/dL (3.4-5.0); ALKALINE PHOSPHATASE 165 U/L (46-116); ASPARTATE AMINOTRANSFERASE 35 U/L (15-37); BILIRUBIN,DIRECT 0.1 mg/dL (0.0-0.2); BILIRUBIN,TOTAL 0.8 mg/dL (0.2-1.0); CALCIUM, SERUM 9.1 mg/dL (8.5-10.1); CARBON DIOXIDE 30 mmol/L (21-32); CHLORIDE 99 mmol/L (98-107); CREATININE 0.5 mg/dL (0.6-1.3); GLUCOSE 163 mg/dL (74-106); POTASSIUM 3.2 mmol/L (3.5-5.1); SODIUM SERUM 141 mmol/L (136-145); TOTAL PROTEIN, SERUM 7.1 g/dL (6.4-8.2); UREA NITROGEN, BLOOD 12 mg/dL (7-18)
[2023-04-14] MEDS: SENNOSIDES/DOCUSATE SODIUM 1 TAB TABLET PO SCH (17:35)
[2023-04-14] MEDS ORDERED: POTASSIUM CHLORIDE 20 MEQ TAB.PRT.SR PO ONE (17:37)
[2023-04-14] MEDS: POTASSIUM CHLORIDE 20 MEQ TAB.PRT.SR PO ONE (17:42)
[2023-04-14 22:00] VITALS: O2SAT 99
[2023-04-14 22:35] VITALS: BP 144/66; TEMP 98.1; O2SAT 100
[2023-04-15] MEDS ORDERED: MORPHINE SULFATE INJ 2 MG/ML DISP.SYRIN IV PRN (01:00)
[2023-04-15] MEDS ORDERED: ONDANSETRON HCL/PF 4 MG/2 ML VIAL IVP PRN (01:00)
[2023-04-15] MEDS ORDERED: MAGNESIUM HYDROXIDE 30 ML UDC PO PRN (01:00)
[2023-04-15] MEDS ORDERED: DEXTROSE 50%-WATER 50 ML DISP.SYRIN IV PRN (01:00)
[2023-04-15] MEDS ORDERED: hydrALAZINE HCL IV 20 MG VIAL IV PRN (01:00)
[2023-04-15] MEDS ORDERED: ACETAMINOPHEN 325 MG TABLET PO PRN (01:00)
[2023-04-15 07:00] VITALS: BP 120/60; TEMP 97.5; O2SAT 100
[2023-04-15] MEDS: BLOOD SUGAR DIAGNOSTIC 1 EACH STRIP IN SCH (07:50)
[2023-04-15] MEDS: POLYETHYLENE GLYCOL 3350 17 GM POWD.PACK PO SCH (08:35)
[2023-04-15] MEDS: DOCUSATE SODIUM LIQ 100 MG/10 ML UDC PO SCH (08:35)
[2023-04-15] MEDS: AMLODIPINE BESYLATE 10 MG TABLET PO SCH (08:36)
[2023-04-15] MEDS: HEPARIN SODIUM, PORCINE 5000 UNITS/1 ML VIAL SQ SCH (08:40)
[2023-04-15] MEDS: IV D5/ 0.9% NACL 1,000 ML IV PRN (09:44)
[2023-04-15] MEDS: INSULIN REGULAR, HUMAN 100 UNIT/ML 3 ML VIAL SQ PRN (12:26)
[2023-04-15 16:07] VITALS: BP 121/54; TEMP 97.6; O2SAT 99
[2023-04-15] MEDS: GLUCERNA SHAKE 237 ML CAN PO SCH (17:06)
[2023-04-15 20:00] VITALS: BP 133/57; TEMP 98.4; O2SAT 99
[2023-04-16 06:22] LABS: BASOPHILS # (AUTO) 0.1 K/uL (0.0-0.2); BASOPHILS % (AUTO) 1.3 % (0.0-2.0); EOSINOPHILS # (AUTO) 0.2 K/uL (0.0-0.7); EOSINOPHILS % (AUTO) 2.9 % (0.0-6.0); HEMATOCRIT 37 % (33-45); HEMOGLOBIN 12.1 g/dL (11.5-14.8); LYMPHOCYTES # (AUTO) 2.7 K/uL (0.8-4.8); LYMPHOCYTES % (AUTO) 37.8 % (20.0-44.0); MEAN CORPUSCULAR HEMOGLOBIN 30 PG (26.0-33.0); MEAN CORPUSCULAR HGB CONC 33 g/dl (31.0-36.0); MEAN CORPUSCULAR VOLUME 92 fL (82-100); MONOCYTES # (AUTO) 0.7 K/uL (0.1-1.30); MONOCYTES % (AUTO) 9.7 % (2.0-12.0); NEUTROPHILS # (AUTO) 3.4 K/uL (1.8-8.9); NEUTROPHILS % (AUTO) 48.3 % (43.0-81.0); PLATELET COUNT (AUTO) 368 K/uL (150-450); WHITE BLOOD COUNT (AUTO) 7.1 K/uL (4.3-11.0)
[2023-04-16 06:41] LABS: ALANINE AMINOTRANSFERASE 26 U/L (12-78); ALBUMIN 2.7 g/dL (3.4-5.0); ALKALINE PHOSPHATASE 149 U/L (46-116); ASPARTATE AMINOTRANSFERASE 34 U/L (15-37); BILIRUBIN,TOTAL 0.7 mg/dL (0.2-1.0); CALCIUM, SERUM 8.8 mg/dL (8.5-10.1); CARBON DIOXIDE 24 mmol/L (21-32); CHLORIDE 104 mmol/L (98-107); CREATININE 0.4 mg/dL (0.6-1.3); GLUCOSE 98 mg/dL (74-106); MAGNESIUM 1.7 mg/dL (1.8-2.4); PHOSPHORUS 2.2 mg/dL (2.5-4.9); POTASSIUM 3.2 mmol/L (3.5-5.1); SODIUM SERUM 138 mmol/L (136-145); TOTAL PROTEIN, SERUM 6.1 g/dL (6.4-8.2); UREA NITROGEN, BLOOD 7 mg/dL (7-18)
[2023-04-16 07:00] VITALS: BP 125/58; TEMP 98.2; O2SAT 100
[2023-04-16] MEDS: POTASSIUM CHLORIDE 20 MEQ TAB.PRT.SR PO ONE (08:40)
[2023-04-16] MEDS: MAGNESIUM OXIDE 400 MG TABLET PO ONE (09:46)
[2023-04-16 16:00] VITALS: BP 117/59; TEMP 98.1; O2SAT 99
[2023-04-16] MEDS: K PHOS NEUTRAL 250 MG TABLET PO ONE (16:15)
[2023-04-16 20:00] VITALS: BP 129/61; TEMP 98.2; O2SAT 100
[2023-04-17 07:00] VITALS: BP 134/54; TEMP 97.9; O2SAT 98
[2023-04-17 08:46] VITALS: BP 134/54
== END 2023-04-17 16:00 | DRG 641 ==
LOC: ER 15:41 → MED 22:04
PROVIDERS: ADMIT Nurse Practitioner Acute Care; ATTEND Nurse Practitioner Acute Care
DX: R62.7 Adult failure to thrive (principal); C25.9 Malignant neoplasm of pancreas, unspecified; C79.9 Secondary malignant neoplasm of unspecified site; E44.0 Moderate protein-calorie malnutrition; F03.90 Unspecified dementia, unspecified severity, without behavioral disturbance, psychotic disturbance, mood disturbance, and anxiety; E87.6 Hypokalemia; Z20.822 Contact with and (suspected) exposure to COVID-19; I10 Essential (primary) hypertension; E11.9 Type 2 diabetes mellitus without complications; Z79.84 Long term (current) use of oral hypoglycemic drugs; Z79.899 Other long term (current) drug therapy; K59.00 Constipation, unspecified; E78.5 Hyperlipidemia, unspecified
CPT/HCPCS: 36415; 71045-TC; 80048-TC; 80053-TC; 80076-TC; 82962-TC; 83735-TC; 84100-TC; 85025-TC; 97110-TC; 97112-TC; 97530-TC; A4223; G0378; J1644; J1815; J7040; J7042